=== PATIENT | female | born 1965 | race Caucasian/White ===

== ENCOUNTER 2017-07-26 10:30 | Outpatient (RCR) | payer OTHER, SELFPAY ==
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
== END 2017-07-26 11:00 | disposition home or self-care (01) ==
LOC: PT 10:30
PROVIDERS: Family Provider Family Medicine; PCP Family Medicine; Visit Provider Orthopaedic Surgery
DX: S22.081D Stable burst fracture of T11-T12 vertebra, subsequent encounter for fracture with routine healing (principal)
CPT/HCPCS: 97113; 97162; 97530

== ENCOUNTER → 2019-06-12 08:06 | Outpatient (CLI) | payer BC, SELFPAY ==
--- NOTE | 2019-06-12 08:07 | RAD_ITS ---
Frontal and lateral views of the lumbosacral spine reveal the vertebral bodies are of normal height with increase in the lumbar lordosis. There is 50% compression deformity of for the body of T12 slightly more than noted the study of July 26, 2017. The rest of the vertebral bodies and the intervertebral discs are maintained. No evidence of spondylolysis or spondylolisthesis. Apparently there is hypertrophic arthropathy of the apophyseal joints at L5-S1 on the right side. RAD/Thoracolumbar 2 Views IMPRESSION: Interval increase in the compression of T12, the study is otherwise unchanged since July 26, 2017. Electronically Signed: Toby Calvert, at 16:14 EST Tel , Service support ,
== END ==
PROVIDERS: Family Provider Family Medicine; PCP Family Medicine; Referring Provider Orthopaedic Surgery; Visit Provider Orthopaedic Surgery
DX: M54.6 Pain in thoracic spine (principal)
CPT/HCPCS: 72080

== ENCOUNTER 2021-05-30 20:01 | Emergency (ER) | payer BC, OTHER, SELFPAY ==
[2021-05-30] VITALS (9 sets, daily range): BP systolic 118–159; BP diastolic 62–112; PULSE 62–108; RESP 12–21; TEMP 36.3; O2SAT 84–99; BMI 25.1
--- NOTE | 2021-05-30 20:15 | ED.VIS.GI ---
HPI HPI - GI History of Present Illness Chief Complaint: Foreign Body Detail of Chief Complaint: Steak stuck in my throat Informant: patient Abdominal Pain/Flank Pain Onset: Today and Hours Context: Sudden Onset Timing: Continuous Current Severity: Mild Maximum Severity: Mild Nausea/Vomiting/Emesis GI Symptom: Negative for Nausea Diarrhea/Melena/Hematochezia GI Symptom: Negative for Diarrhea Associated Symptoms Associated Symptoms: Negative for Dysuria Narrative Narrative: 55-year-old female states she was eating steak tonight around 615 after the first bite she was unable to swallow things systolic in her esophagus. She has had this happen before but is never needed upper endoscopy. She denies any other symptoms. She denies any trouble breathing. Prior similar symptoms: Yes Recent Illness/Hospitalization: No PFSH PFSH Medical History no medical history no medical history Allergy/AdvReac Type Severity Reaction Status Date / Time No Known Allergies Allergy Verified 05/30/21 20:04 Social History Smoking Status: Current every day smoker tobacco type: cigarettes ROS ROS ED ROS Narrative Denies recent illness. Review of Systems ROS Unobtainable: Denies due to encephalopathy Constitutional Constitutional ED: Denies fever(s) ENT ENT ED: Denies ear pain Cardiovascular Cardiovascular: Denies chest pain Respiratory/Chest Respiratory/Chest: Denies dyspnea Gastrointestinal Gastrointestinal: Denies abdominal pain, diarrhea, nausea or vomiting Genitourinary Genitourinary ED: Denies dysuria Musculoskeletal Musculoskeletal: Denies myalgias Integumentary Denies rash Neurologic Neurologic: Denies headache(s) Psychiatric Psychiatric: Denies depression Endocrine Endocrinology: Denies polyuria Hematologic/Lymphatic Hematologic/Lymphatic: Denies easy bruising Allergic/Immunologic Allergic/Immunologic ED: Denies urticaria EXAM Physical Exam Narrative Exam Narrative: 55-year-old female no acute distress vital signs stable afebrile. Pulse ox 97% on room air. ENT exam unremarkable. She is unable to swallow. Is spitting saliva out. But no respiratory distress. Neck nontender no lymphadenopathy. No mass. Trachea midline. Lungs are clear. Heart regular rhythm no murmur rate about 80. Abdomen soft nontender. Moving all 4 extremities. Nontender no edema. Neurologic exam normal. Const Vital Signs: 05/30/21 20:02 Temperature 97.4 F L Temperature Source Temporal Pulse Rate 78 Respiratory Rate 15 Blood Pressure 133/76 H Blood Pressure Mean 95 Pulse Ox 97 Oxygen Delivery Method Room Air Positive well nourished and well developed; Negative for obese, cachectic, contractures or unkempt General Appearance ED: well developed and NAD; Negative for unkempt, cachectic, contractures or pallor Nutritional Appearance: Negative for cachectic or obese HEENT Reports moist mucous membranes normocephalic and atraumatic; Negative for trauma or tenderness Eyes PERRL and EOMs intact bilaterally Neck no lymphadenopathy, supple and no JVD General: Negative for tenderness Resp normal respiratory effort and clear to auscultation bilaterally Auscultation: Negative for rales, rhonchi or wheezes Cardio regular rate, regular rhythm, S1 normal heart sound, S2 normal heart sound and no murmurs GI non-tender, non-distended and no masses Auscultation: normoactive bowel sounds Palpation: soft; Negative for tender or guarding Back/Spine no CVA tenderness Extremity full ROM General Extremety ED: Negative for edema or tenderness General Extremity: Negative for edema Neuro moves all extremities Sensorium / Orientation: alert, oriented to place and oriented to time; Negative for orientation impaired, confused, lethargic or stuporous Motor Exam: strength 5/5 throughout Psych mental status grossly normal and thought process normal Appearance: Negative for unkempt Mood & Affect: Negative for depressed Skin no wounds General Skin Exam: Negative for jaundice or pallor Lesions: no lesions Rashes: no rashes MDM MDM MDM Narrative Medical decision making narrative: 55-year-old with esophageal steak bolus. We discussed options she is going to be given IV glucagon. I have already spoken to the on-call surgeon who will come in and do upper endoscopy if the glucagon is not successful. Repeat exam at 920 the patient is still unable to swallow her own saliva. Glucagon is done no significant benefit. Dr. Karthik august will begin to do upper endoscopy. Discharge Plan Triage Chief Complaint: Foreign Body ED Provider: Thee Mcdonald Dx/Rx/DC Orders Clinical Impression: Acute esophageal obstruction Instructions: ED Esophageal Foreign Body, Resolved Primary Care Provider: Kimberlee Hamilton Referrals: Karthik Martinez MD [STAFF PHYSICIAN] - 1-2 Weeks Activity Restrictions/Additional Instructions: Call and follow-up with Dr. Karthik Martinez at his office. Soft diet increase slowly as tolerated. Be careful with meat. Make sure you cut up small pieces and chew it thoroughly. Disposition Disposition: Home, Self Care
[2021-05-30] MEDS: Glucagon 1 MG/ML Syringe IV (20:22)
[2021-05-30] MEDS: Propofol 200 MG/20 ML Vial IV BOLUS (22:12)
--- NOTE | 2021-05-30 22:12 | CON.PCM.SX_ITS ---
Assessment & Plan Assessment/Plan (1) Acute esophageal obstruction: PLAN: Patient had acute obstruction of her esophagus due to fluid bolus. I discussed this situation with her as well as an EGD for removal of the impacted food bolus. I discussed the risks of the procedure such as bleeding, infection, perforation of the bowel or aspiration. Patient understood the risks and underwent EGD in the emergency room. I was able to advance the food bolus into the stomach. There was no obvious stricture. The area of obstruction was in the proximal third of the esophagus. I would like the patient to stay on soft diet for 2 days and follow-up with me in the office for elective EGD with biopsies and possible dilation. Karthik Martinez MD Pager: [facility] [address] [place] [address], [address] [place] [address] Office: HPI Consult Data Date of Consult: 05/30/21 HPI Narrative HPI Narrative: FE GARCIA, is a 55 F who presents with inability to swallow. Patient reports that she was eating steak earlier today and she has not been able swallow. She says this is happened several times. She is never had an EGD or dilation. She does not take a PPI. [facility] Medical History no medical history Allergy/AdvReac Type Severity Reaction Status Date / Time No Known Allergies Allergy Verified 05/30/21 20:04 Social History Smoking Status: Current every day smoker tobacco type: cigarettes ROS Constitutional Constitutional: Denies anorexia or chills Eyes Eyes: Denies blurry vision ENT HEENT: Denies abnormal hearing Cardiovascular Cardiovascular: Denies chest pain Respiratory/Chest Respiratory/Chest: Denies cough or dyspnea Gastrointestinal Gastrointestinal: Reports dysphagia; Denies abdominal pain Genitourinary Genitourinary: Denies change in urinary stream Musculoskeletal Musculoskeletal: Denies abnormal gait Integumentary Integumentary: Denies jaundice Neurologic Neurologic: Denies abnormal gait Physical Exam Const alert and oriented x3 Resp normal respiratory effort and normal air movement Cardio regular rate and regular rhythm GI soft to palpation, non-tender and non-distended
--- NOTE | 2021-05-30 22:18 | OP.PCM_ITS ---
Problems Associated Problem List Diagnoses (1) Acute esophageal obstruction: Report of Operation Date of Procedure: 05/30/21 Pre-Operative Diagnosis: Esophageal food impaction Post-Operative Diagnosis: Same Surgery/Procedure Performed:: EGD with removal of food bolus Description of Procedure: Conscious sedation was provided by the emergency room physician. After this a bite block was placed and a well-lubricated EGD scope was placed into the mouth and into the proximal esophagus where food bolus was encountered. The proximal esophagus was irrigated and the food bolus was able t o be advanced all the way into the stomach. The entire esophagus was examined once more and there did not appear to be a stricture. The patient did have obstruction of the proximal esophagus with food bolus. The scope was then removed. Patient tolerated the procedure well.
== END 2021-05-30 22:49 | disposition home or self-care (01) ==
PROVIDERS: Surgery; Emergency Provider Emergency Medicine
PROC: 0DJ08ZZ Inspection of Upper Intestinal Tract, Via Natural or Artificial Opening Endoscopic (ICD-10-PCS; CPT 43235; principal; 2021-05-30 22:00)
DX: K22.2 Esophageal obstruction (principal); T18.128A Food in esophagus causing other injury, initial encounter; F17.210 Nicotine dependence, cigarettes, uncomplicated
CPT/HCPCS: 43247; 96374; 99152; 99153; 99156; 99284; J7030; A4216; J1610

== ENCOUNTER → 2023-11-03 | Outpatient (CLI) | payer MEDICAID, SELFPAY ==
--- NOTE | 2023-11-03 14:11 | CT_ITS ---
STUDY: CTA HEAD AND NECK WITH CONTRAST REASON FOR EXAM: Female, 57 years old. 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 RADIATION DOSAGE (If Supplied By Facility): CTDIvol = ( 26.37 ) mGy, DLP = ( 1498.32 ) mGycm TECHNIQUE: CT angiography was performed with a multi-detector CT scanner. Data acquisition was obtained from the skull base through the vertex following intravenous administration of IV 100mL [id number]-370. MIP images were reconstructed from the axial data set. Post-processing of the angiographic images was performed, with multiplanar reformation and 3D reconstruction. Individualized dose optimization techniques were used for this CT. COMPARISON: No relevant priors. FINDINGS: Normal bilateral petrous carotid arteries. Normal right cavernous carotid artery with a normal supraclinoid bifurcation. Normal left cavernous carotid artery with a normal supraclinoid bifurcation. Normal right A1 segments of the anterior cerebral artery. Normal left A1 segments of the anterior cerebral artery. Normal intact anterior communicating artery (ACOM). Normal bilateral A2 segments of the anterior cerebral arteries. Normal right M1 and M2 segments of the middle cerebral arteries, with a normal M1 bifurcation. Normal left M1 and M2 segments of the middle cerebral arteries, with a normal M1 bifurcation. Normal right posterior communicating artery (PCOM). Normal left posterior communicating artery (PCOM). Normal bilateral vertebral arteries. Normal basilar artery with a normal basilar bifurcation. The visualized bilateral superior cerebellar (SCA) arteries are normal. Normal bilateral P1, P2 and visualized P3 segments of the posterior cerebral arteries. There is no demonstrated aneurysm of the [place] of [place]. There is no demonstrated abnormality of the visualized brain. AORTIC ARCH: Normal visualized aortic arch. Normal origins of the brachiocephalic, left common carotid, and left subclavian arteries. RIGHT CAROTID ARTERIES: Normal right common carotid artery (CCA). Normal right common carotid bulb. Normal origin of the right internal carotid (ICA) artery without a hemodynamically significant stenosis. Normal visualized cervical portion of the right internal carotid artery. Normal origin of the right external carotid artery (ECA). LEFT CAROTID ARTERIES: Normal left common carotid artery (CCA). Normal left common carotid bulb. Normal origin of the left internal carotid (ICA) artery without a hemodynamically significant stenosis. Normal visualized cervical portion of the left internal carotid artery. Normal origin of the left external carotid artery (ECA). VERTEBRAL ARTERIES: There is enhancement within the bilateral vertebral arteries with a small right vertebral artery, and a dominant left vertebral artery. CT/CTA Head AND Neck W/ Contrast IMPRESSION: Normal CTA Head and neck with contrast. Electronically Signed: Yohannes Duncan MD at 8:43 EDT ,
== END | disposition home or self-care (01) ==
LOC: CT 14:09
PROVIDERS: Referring Provider Ophthalmology; Visit Provider Ophthalmology
DX: H49.02 Third [oculomotor] nerve palsy, left eye (principal); S06.9XAA Unspecified intracranial injury with loss of consciousness status unknown, initial encounter
CPT/HCPCS: 70496; 70498; Q9967

== ENCOUNTER 2024-07-27 10:01 | Day surgery (SDC) | payer OTHER, SELFPAY ==
[2024-07-27] VITALS (10 sets, daily range): BP systolic 99–155; BP diastolic 64–86; PULSE 64–91; RESP 16; TEMP 36.2–36.9; O2SAT 94–97; BMI 23.8
--- NOTE | 2024-07-27 10:13 | EDS_ITS ---
HPI HPI - GI History of Present Illness Chief Complaint: Foreign Body Narrative Narrative: 58-year-old female past medical history of previous esophageal food impactions, presents with a piece of steak stuck in her esophagus since 1130 yesterday, approximately 23 hours ago. She had had previous problems, and was told that she has a narrow esophagus. She may have had dilations in the past, but was told by gastroenterology that they do not last very long. She states that she has spit up at least 32 ounces of saliva since yesterday. He gets to a certain point where she cannot swallow her saliva and has to spit it all up. Last time this happened may have been a year and a half ago. She states 6 months prior to that she had to have the food shove down the removed. She has tried jumping up and down and warm cola and is unsuccessful in dislodging the esophageal food impaction. PFSH PFSH Allergy/AdvReac Type Severity Reaction Status Date / Time No Known Allergies Allergy Verified 07/27/24 10:03 Surgical History (Updated 07/27/24 @ 12:[address] Nils Mathew MD) S/P tonsillectomy S/P appendectomy Surgical History no surgical history Social History Smoking Status: Current every day smoker (Patient did not smoke today.) tobacco type: cigarettes ROS ROS ED ROS Narrative Review of systems positive for esophageal food impaction. To the midsternal ar ea. She has been spitting up since 1130 yesterday. No other symptoms. EXAM Physical Exam Narrative Exam Narrative: Afebrile. Vital signs noted. Airway patent. No drooling or trismus currently. Cardiovascular examination regular rate and rhythm. Lungs clear to ausculta tion bilaterally. Abdomen soft and nontender. Neurological examination nonfocal and nonlateralizing. Const Vital Signs: 07/27/24 10:02 07/27/24 10:30 07/27/24 11:02 Temperature 97.6 F L 98 F Temperature Source Temporal Pulse Rate 86 81 Respiratory Rate 16 16 Respiratory Effort Normal Respiratory Pattern Blood Pressure 155/86 H 148/74 H Blood Pressure Mean 109 98 Blood Pressure Source Blood Pressure Position Blood Pressure Location Baseline BP Pulse Ox 97 97 Oxygen Delivery Method Room Air 07/27/24 12:05 07/27/24 12:26 07/27/24 12:30 Temperature 98 F 98.4 F Temperature Source Temporal Pulse Rate 81 76 91 Respiratory Rate 16 16 16 Respiratory Effort Respiratory Pattern Normal Blood Pressure 148/74 H 120/72 105/69 Blood Pressure Mean 88 81 Blood Pressure Source Monitor Monitor Blood Pressure Position Semi-Fowlers Semi-Fowlers Blood Pressure Location Right Arm Right Arm Baseline BP Pulse Ox 97 94 96 Oxygen Delivery Method Room Air Room Air Room Air 07/27/24 12:31 07/27/24 12:35 07/27/24 12:40 Temperature 98.4 F Temperature Source Pulse Rate 88 74 65 Respiratory Rate 16 16 16 Respiratory Effort Respiratory Pattern Blood Pressure 120/72 103/64 104/68 Blood Pressure Mean 77 80 Blood Pressure Source Monitor Monitor Blood Pressure Position Semi-Fowlers Semi-Fowlers Blood Pressure Location Right Arm Right Arm Baseline BP 120/72 120/72 Pulse Ox 97 95 95 Oxygen Delivery Method Room Air Room Air Room Air 07/27/24 12:45 07/27/24 12:59 07/27/24 13:01 Temperature 97.1 F L Temperature Source Temporal Pulse Rate 64 Respiratory Rate 16 Respiratory Effort Respiratory Pattern Normal Blood Pressure 99/65 Blood Pressure Mean 76 Blood Pressure Source Monitor Blood Pressure Position Semi-Fowlers Blood Pressure Location Right Arm Baseline BP 120/72 120/72 Pulse Ox 95 Oxygen Delivery Method Room Air MDM MDM MDM Narrative Medical decision making narrative: I reviewed her prior records and she has not been here since 2020. This was 3 years ago. Differential diagnosis includes esophageal food impaction versus partial obstruction versus foreign body sensation/globus hystericus. Patient was given glucagon 1 mg intravenously after saline lock placed. She will be given a p.o. challenge. Gastroenterology not on-call today. Patient discussed with Dr. Martinez with general surgery. He will take her to the endoscopy suite. Disposition is discharged to endoscopy suite. Patient is in stable condition. History & Record Review Discussion w/independent historian: Patient and Family Management Discussion w/another healthcare provider: Remote Sensing Engineer (Dr. Martinez, general surgery) Discharge Plan Dx/Rx/DC Orders Clinical Impression: Esophageal foreign body, Obstruction of esophagus due to food impaction Disposition Disposition: Acute Care Hospital [facility] Discharge Date/Time: 07/27/24 11:56
[2024-07-27] MEDS: Glucagon 1 MG/ML Syringe IV (10:28)
--- NOTE | 2024-07-27 11:55 | HP.PCM.SX_ITS ---
HPI - General HPI Narrative FE GARCIA, is a 58 F who presents with steak stuck in her esophagus. Patient reports she was eating steak for lunch yesterday and has not been able to control her saliva since. She has had food impaction in the past and had EGD in 2020. She said this has happened 4 times since then. PFSH Allergy/AdvReac Type Severity Reaction Status Date / Time No Known Allergies Allergy Verified 07/27/24 10:03 Surgical History no surgical history Social History Smoking Status: Current every day smoker tobacco type: cigarettes Vital Signs Vital Signs Vital Signs: 07/27/24 10:02 07/27/24 10:30 Temperature 97.6 F L Temperature Source Temporal Pulse Rate 86 Respiratory Rate 16 Respiratory Effort Normal Blood Pressure 155/86 H Blood Pressure Mean 109 Pulse Ox 97 Oxygen Delivery Method Room Air Weight Weight: 166 lb 2 oz Body Mass Index (BMI) 23.8 Physical Exam Const oriented x3 and no apparent distress Resp normal respiratory effort GI soft to palpation and non-tender Assessment & Plan Assessment/Plan (1) Acute esophageal obstruction: PLAN: Patient has esophageal obstruction due to steak. I discussed with her EGD to remove it. I discussed the risks including but not limited to bleeding, infection, perforation or aspiration. Patient understands the risks and is willing to proceed. Karthik Martinez MD Pager: [facility] [address] [place] [address], [address] [place] [address] Office:
--- NOTE | 2024-07-27 12:00 | PRE.ANES_ITS ---
ASA Classification* ASA Classification ASA Classification: 2 and E Assessment & Plan Anesthesia* Anesthesia Assessment Anesthesia Assessment: Discussed sedation and/or anesthesia options, risks, benefits, and alternatives with patient/parents/legal guardian/POA. Questions invited. The patient/parents/legal guardian/POA seems to understand and agrees to proceed with anesthesia plan. Reviewed the physical assessment, medical history, allergy history and patient home medications list prior to surgery/procedure/anesthetic and documented any changes. Performed airway and anesthesia risk assessments. Anesthesia Type Anesthesia Type: MAC History Source History Obtained from:: Patient and Chart Anesthesia Focused Assessment* Temperature: 98 F Pulse Rate: 81 Blood Pressure: 148/74 Respiratory Rate: 16 Pulse Ox: 97 Oxygen Delivery Method: Room Air Airway Assessment Mouth opens: >3 cm Mallampati Score: I Teeth Condition: Caps/Crowns (Patient has right upper molar crown. It is tight.) Neck Range of motion (ROM): Full ROM Focused Labs Anesthesia Preop lab: CBC CHEMISTRY COAG Pre-Assessment Diagnosis/Proposed Procedure Planned Operative Procedure(s): Esophagogastroduodenoscopy. 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 When Was Last Pacemaker Check QUESTION #4 FULL TEXT: You/Your Family Experience fever (hyperthermia) with Anesthesia Last Oral Intake Last Oral intake: Last Oral Intake NPO since Meds taken in AM with sips of water? Meds patient instructed to take am of surgery Any additional information?: Yes NPO since: 23:30 PONV PONV - supplier quality manager: PONV - supplier quality manager Female HX of Motion Sickness HX of N/V After Surgery Non-Smoker Duration of Surgery greater than 60 minutes Number of Risk Factors PONV Score Height & Weight Height & Weight: Anesthesia: Height & Weight Height 5 ft 10 in 07/27/24 10:02 Weight: 75.353 kg 07/27/24 10:02 Body Mass Index (BMI) 23.8 07/27/24 10:02 Respiratory Assessment Respiratory Assessment - supplier quality manager: Respiratory Tract Infection Hx - supplier quality manager Hx Respiratory Tract Infection Any additional information?: Yes Hx Respiratory Tract Infection: Yes (Patient had COVID 2 weeks ago. Still has a lingering cough.) STOP Sleep Apnea STOP Sleep Apnea - supplier quality manager: STOP Sleep Apnea - supplier quality manager Hx Hypertension Hx Sleep Apnea CPAP BIPAP Do you snore loudly (louder than talking or can be heard Do you often feel tired/ fatigued/ sleepy during daytime? Has anyone observed you stop breathing during sleep? STOP Results QUESTION #5 FULL TEXT : Do you snore loudly (louder than talking or can be heard through closed doors)? Tobacco Use History Tobacco Use History - supplier quality manager: Tobacco Use History - supplier quality manager Tobacco Use Smoking Status Current every day smoker 07/27/24 10:30 Hx Tobacco Use Years Smoking Packs Smoked per Day Smoking Cessation Date was within the last 15 years Hx Smoking Cessation Date Hx Smoking Cessation Counseling Any additional information?: Yes Smoking Status: Current every day smoker (Patient did not smoke today.) Hematologic Medial History Hematologic Hx - supplier quality manager: Hematologic Medical Hx - [employer] intern Hx of Blood Transfusion Hx of Transfusion in last 3 Months Date of Last Transfusion (if within last 3 months) Ever experience any problems with transfusion(s)? Specify any problems Hx of Preganancy in last 3 Months Nurse Filling Out Transfusion & Questions: Date: Time: Patient unable to answer at this time (ie. confused, unrespo /Reproduction History /Reproductive History - supplier quality manager: /Reproductive Hx- supplier quality manager Hx Now Gestational Age (in weeks): EDC: Hx Hx Para Hx Section SAB PFSH Allergy/AdvReac Type Severity Reaction Status Date / Time No Known Allergies Allergy Verified 07/27/24 10:03 Surgical History (Updated 07/27/24 @ 12:[address] Nils Mathew MD) S/P tonsillectomy S/P appendectomy Surgical History no surgical history Social History Smoking Status: Current every day smoker (Patient did not smoke today.) tobacco type: cigarettes Review of Systems (Anesthesia) ROS Narrative System reviewed and no additional complaints, except as documented.
--- NOTE | 2024-07-27 12:23 | OP.EGD_ITS ---
Patient Name: Shani Hamilton Procedure Date: 07/27/2024 11:47 AM Date of : 1965 Age: 58 Procedure: Upper GI endoscopy Indications: Foreign body in the esophagus Providers: Karthik Martinez MD Medicines: Propofol per Anesthesia Patient Profile: This is a 58 year old female. Refer to note in patient chart for documentation of history and physical. Complications: No immediate complications. Estimated blood loss: Minimal. Procedure: Pre-Anesthesia Assessment: - Prior to the procedure, a History and Physical was performed, and patient medications and allergies were reviewed. The patient's tolerance of previous anesthesia was also reviewed. The risks and benefits of the procedure and the sedation options and risks were discussed with the patient. All questions were answered, and informed consent was obtained. Prior Anticoagulants: The patient has taken no anticoagulant or antiplatelet agents. After reviewing the risks and benefits, the patient was deemed in satisfactory condition to undergo the procedure. After obtaining informed consent, the endoscope was passed under direct vision. Throughout the procedure, the patient's blood pressure, pulse, and oxygen saturations were monitored continuously. The Endoscope was introduced through the mouth, and advanced to the second part of duodenum. The upper GI endoscopy was accomplished without difficulty. The patient tolerated the procedure well. Scope In: 12:16:08 PM Scope Out: 12:18:58 PM Total Procedure Duration Time 0 hours 2 minutes 50 seconds Findings: Food was found in the upper third of the esophagus. Advancement of the food bolus to the stomach was achieved Impression: - Food in the upper third of the esophagus. Removal was successful. Recommendation: - Discharge patient to home. - Resume previous diet. - Continue present medications. - Return to my office PRN. Procedure Code(s): --- Professional --- 63942, Esophagogastroduodenoscopy, flexible, transoral; with removal of foreign body(s) Diagnosis Code(s): --- Professional --- T18.128A, Food in esophagus causing other injury, initial encounter T18.108A, Unspecified foreign body in esophagus causing other injury, initial encounter CPT copyright 2021 [employer]. All rights reserved. The codes documented in this report are preliminary and upon nascar driver review may be revised to meet current compliance requirements. Karthik Martinez MD 07/27/2024 12:23:11 PM This report has been signed electronically. Number of Addenda: 0 Note Initiated On: 07/27/2024 11:47 AM
--- NOTE | 2024-07-27 12:23 | OP.CCLET_ITS ---
07/27/2024 Kimberlee Hamilton Re : Upper GI endoscopy procedure for Shani Hamilton Lamarr Alfonso This procedure was performed on Saturday, July 27, 2024. My impressions and recommendations are as follows: Impressions : - Food in the upper third of the esophagus. Removal was successful. Recommendations : - Discharge patient to home. - Resume previous diet. - Continue present medications. - Return to my office PRN. My findings are described in the full procedure note, which is enclosed. If I can be of further assistance, please feel free to contact me at Doctor phone number(s): , Work: . Sincerely, Karthik Martinez MD 07/27/2024 12:23:11 PM This report has been signed electronically.
--- NOTE | 2024-07-27 12:30 | PCM.POST.ANE ---
Anesthesia: Postop Eval I Current Vital Signs Temperature: 98.4 F Pulse Rate: 88 Blood Pressure: 120/72 Respiratory Rate: 16 Pulse Ox: 97 Oxygen Delivery Method: Room Air Assessment Airway patent: Yes Spontaneous unlabored respirations: Yes Mental status: Awake and Calm nausea: No Vomiting: No Anesthesia Complication: No Fluid Hydration Crystalloid volume administer (ml): 30 Total IV fluid infused: 30 Progress Note Anesthesia document: Postop Eval 1 completed: Yes
--- NOTE | 2024-07-27 16:04 | PCM.POSTANE2 ---
Anesthesia Postop Eval I Sum Postop Eval Completion status Anesthesia document: Postop Eval 1 completed: Yes Anesthesia Postop Eval I Summary Anesthesia Postop Eval I Summary: Anesthesia Postop Eval I: Assessment Summary Airway patent Yes 07/27/24 12:31 [email or web address] Spontaneous unlabored Yes 07/27/24 12:31 [email or web address] respirations Mental status Awake,Calm 07/27/24 12:31 [email or web address] nausea No 07/27/24 12:31 [email or web address] Vomiting No 07/27/24 12:31 [email or web address] Anesthesia Postop Eval I: Fluid Summary Crystalloid volume administer 30 07/27/24 12:31 [email or web address] (ml) Colloids volume administered ( ml) Blood Product volume administered (ml) Total IV fluid infused 30 07/27/24 12:31 [email or web address] Anesthesia Postop Eval I: Summary Notes Anesthesia Complication No 07/27/24 12:31 [email or web address] Anesthesia Complication Comment: Post-operative progress note Anesthesia: Postop Eval II Evaluation Mental status: Awake and Calm Pain Level: 0 nausea: No Vomiting: No Complications Anesthesia Complication: No
== END 2024-07-27 13:08 | disposition home or self-care (01) ==
LOC: ED 11:37 → SDC 12:54 → AC 12:55
PROVIDERS: Emergency Provider Emergency Medicine; Visit Provider Surgery
PROC: 0DJ08ZZ Inspection of Upper Intestinal Tract, Via Natural or Artificial Opening Endoscopic (ICD-10-PCS; CPT 43235; principal; 2024-07-27 11:40)
DX: K22.2 Esophageal obstruction (principal); F17.210 Nicotine dependence, cigarettes, uncomplicated; T18.128A Food in esophagus causing other injury, initial encounter
CPT/HCPCS: 43247; 99284; J1610; J2405